=== PATIENT | female | born 1990 | race Caucasian/White ===

== ENCOUNTER → 2017-03-10 | Outpatient (CLI) | payer OTHER ==
[2017-03-12 11:32] LABS: DHEA SULFATE 140.6 ug/dL (84.8-378.0); ESTRADIOL 33.3 pg/mL (.)
[2017-03-12 13:07] LABS: INSULIN 33.5 uIU/mL (2.6-24.9)
== END | disposition home or self-care (01) ==
LOC: LB 13:11
DX: N92.6 Irregular menstruation, unspecified (principal); E28.2 Polycystic ovarian syndrome
CPT/HCPCS: 82627; 82670

== ENCOUNTER → 2017-09-30 | Outpatient (CLI) | payer OTHER ==
[2017-09-30 11:32] LABS: BASOPHIL % 0.6 % (0-2); PLATELET COUNT 287 x10^3mcL (130-400); RED CELL DISTRIBUTION WIDTH 14.2 % (11.5-14.5)
[2017-09-30 11:37] LABS: ALBUMIN 3.9 g/dL (3.4-5.0); ALKALINE PHOSPHATASE 80 U/L (46-116); ALT/SGPT 35 U/L (14-59); AST/SGOT 18 U/L (15-37); BILIRUBIN TOTAL 0.3 mg/dL (0.20-1.00); CARBON DIOXIDE 30.6 mmol/L (21-32); CHLORIDE SERUM 103 mmol/L (98-107); CHOLESTEROL 197 mg/dL (<200); CHOLESTEROL/HDL RATIO 6.4; CREATININE SERUM 0.7 mg/dL (0.6-1.0); FREE T4 1.17 ng/dL (0.76-1.46); GFR1 > 60 mL/min; GLUCOSE SERUM 92 mg/dL (74-106); HDL CHOLESTEROL 31 mg/dL (40-60); POTASSIUM SERUM 4.6 mmol/L (3.5-5.1); SODIUM SERUM 142 mmol/L (136-145); TOTAL PROTEIN, SERUM 8.7 g/dL (6.4-8.2); TRIGLYCERIDES 283 mg/dL (<150)
== END | disposition home or self-care (01) ==
LOC: LB 10:57
PROVIDERS: Family Medicine
DX: E66.9 Obesity, unspecified (principal)
CPT/HCPCS: 84439

== ENCOUNTER → 2017-10-04 | Outpatient (CLI) | payer OTHER | END | disposition home or self-care (01) | LOC: RD 07:25 | DX: J40 Bronchitis, not specified as acute or chronic (principal) ==

== ENCOUNTER → 2018-04-23 | Outpatient (CLI) | payer OTHER ==
[2018-04-23 10:05] LABS: FREE T4 1.2 ng/dL (0.76-1.46)
[2018-04-24 09:10] LABS: ESTRADIOL 18.4 pg/mL (.)
== END | disposition home or self-care (01) ==
LOC: LB 07:52
DX: E28.2 Polycystic ovarian syndrome (principal); N92.6 Irregular menstruation, unspecified
CPT/HCPCS: 82670; 84402; 84403; 84439

== ENCOUNTER → 2018-05-12 | Outpatient (CLI) | payer OTHER ==
[2018-05-12 08:15] LABS: BASOPHIL % 0.4 % (0-2); PLATELET COUNT 264 x10^3mcL (130-400); RED CELL DISTRIBUTION WIDTH 13.7 % (11.5-14.5)
[2018-05-12 08:47] LABS: ALBUMIN 3.7 g/dL (3.4-5.0); ALKALINE PHOSPHATASE 74 U/L (46-116); ALT/SGPT 32 U/L (14-59); AST/SGOT 18 U/L (15-37); BILIRUBIN TOTAL 0.3 mg/dL (0.20-1.00); CALCIUM 8.9 mg/dL (8.5-10.1); CARBON DIOXIDE 27.2 mmol/L (21-32); CHLORIDE SERUM 104 mmol/L (98-107); CHOLESTEROL 186 mg/dL (<200); CREATININE SERUM 0.8 mg/dL (0.6-1.0); GFR1 > 60 mL/min; GLUCOSE SERUM 100 mg/dL (74-106); POTASSIUM SERUM 3.8 mmol/L (3.5-5.1); SODIUM SERUM 142 mmol/L (136-145); TRIGLYCERIDES 182 mg/dL (<150)
[2018-05-12 08:49] LABS: CHOLESTEROL/HDL RATIO 5.5; HDL CHOLESTEROL 34 mg/dL (40-60); TOTAL PROTEIN, SERUM 8.4 g/dL (6.4-8.2)
== END | disposition home or self-care (01) ==
LOC: LB 07:26
PROVIDERS: Family Medicine
DX: Z00.00 Encounter for general adult medical examination without abnormal findings (principal); E28.2 Polycystic ovarian syndrome

== ENCOUNTER → 2020-10-27 | Outpatient (CLI) | payer OTHER ==
[2020-10-27 09:28] LABS: FREE T4 1.19 ng/dL (0.76-1.46); FREE THYROXINE INDEX 3.2 ug/dL (1.4-4.5); T4(THYROXINE) 9.7 ug/dL (4.7-13.3)
[2020-10-27 09:29] LABS: ALKALINE PHOSPHATASE 60 U/L (46-116); ALT/SGPT 28 U/L (14-59); AST/SGOT 19 U/L (15-37); BILIRUBIN TOTAL 0.4 mg/dL (0.20-1.00); CARBON DIOXIDE 26.6 mmol/L (21-32); CHLORIDE SERUM 101 mmol/L (98-107); CREATININE SERUM 0.7 mg/dL (0.6-1.0); GFR1 > 60 mL/min; GLUCOSE SERUM 100 mg/dL (74-106); HDL CHOLESTEROL 36 mg/dL (40-60); POTASSIUM SERUM 3.6 mmol/L (3.5-5.1); SODIUM SERUM 136 mmol/L (136-145); TOTAL PROTEIN, SERUM 8.2 g/dL (6.4-8.2); TRIGLYCERIDES 196 mg/dL (<150)
[2020-10-27 09:37] LABS: CHOLESTEROL 216 mg/dL (<200); T3 TOTAL 1.05 ng/mL
== END | disposition home or self-care (01) ==
LOC: LB 08:36
PROVIDERS: ATTEND Family Medicine
DX: E28.2 Polycystic ovarian syndrome (principal)
CPT/HCPCS: 82670; 84403; 84439

== ENCOUNTER → 2020-11-13 | Outpatient (CLI) | payer OTHER | END | disposition home or self-care (01) | LOC: LB 10:57 | DX: N92.6 Irregular menstruation, unspecified (principal) | CPT/HCPCS: 82670 ==

== ENCOUNTER → 2020-11-19 | Outpatient (CLI) | payer OTHER ==
[2020-11-21 10:07] LABS: ESTRADIOL 34.9 pg/mL (.)
== END ==
LOC: LB 10:26
PROVIDERS: ATTEND Specialist
DX: N92.6 Irregular menstruation, unspecified (principal); E28.2 Polycystic ovarian syndrome
CPT/HCPCS: 82670; 82947

== ENCOUNTER → 2020-12-12 | Outpatient (CLI) | payer OTHER ==
[2020-12-12 10:59] LABS: T3 TOTAL 0.95 ng/mL
[2020-12-12 11:08] LABS: ALBUMIN 4.3 g/dL (3.4-5.0); ALKALINE PHOSPHATASE 59 U/L (46-116); ALT/SGPT 26 U/L (14-59); AST/SGOT 16 U/L (15-37); BILIRUBIN TOTAL 0.3 mg/dL (0.20-1.00); C REACTIVE PROTEIN 0.5 mg/dL (<=0.9); CALCIUM 9.3 mg/dL (8.5-10.1); CHLORIDE SERUM 103 mmol/L (98-107); CREATININE SERUM 0.9 mg/dL (0.6-1.0); GFR1 > 60 mL/min; GLUCOSE SERUM 99 mg/dL (74-106); MAGNESIUM 1.9 mg/dL (1.8-2.4); POTASSIUM SERUM 4.1 mmol/L (3.5-5.1); SODIUM SERUM 140 mmol/L (136-145); T4(THYROXINE) 8.8 ug/dL (4.7-13.3)
[2020-12-12 11:20] LABS: TOTAL PROTEIN, SERUM 8.5 g/dL (6.4-8.2)
[2020-12-12 11:48] LABS: FREE T4 1.25 ng/dL (0.76-1.46)
== END | disposition home or self-care (01) ==
LOC: LB 09:25
PROVIDERS: ATTEND Family Medicine
DX: F41.8 Other specified anxiety disorders (principal); U07.1 COVID-19
CPT/HCPCS: 84439

== ENCOUNTER → 2021-01-13 | Outpatient (CLI) | payer OTHER ==
[2021-01-13 09:15] LABS: PLATELET COUNT 269 x10^3mcL (179-408); RED CELL DISTRIBUTION WIDTH 13.7 % (12.3-17.7)
[2021-01-13 09:36] LABS: ALBUMIN 3.8 g/dL (3.4-5.0); ALKALINE PHOSPHATASE 55 U/L (46-116); ALT/SGPT 22 U/L (14-59); AST/SGOT 18 U/L (15-37); BILIRUBIN TOTAL 0.22 mg/dL (0.20-1.00); C REACTIVE PROTEIN 0.5 mg/dL (<=0.9); CALCIUM 9.3 mg/dL (8.5-10.1); CHLORIDE SERUM 104 mmol/L (98-107); CREATININE SERUM 0.8 mg/dL (0.6-1.0); GFR1 > 60 mL/min; GLUCOSE SERUM 99 mg/dL (74-106); LACTIC DEHYDROGENASE (LDH) 171 U/L (100-190); SODIUM SERUM 139 mmol/L (136-145)
[2021-01-13 09:43] LABS: TOTAL PROTEIN, SERUM 8.4 g/dL (6.4-8.2)
== END | disposition home or self-care (01) ==
LOC: LB 08:35
PROVIDERS: ATTEND Family Medicine
DX: M79.7 Fibromyalgia (principal)
CPT/HCPCS: 86431